=== PATIENT | male | born 1945 | race Caucasian/White ===

== ENCOUNTER 2020-01-31 14:18 | Emergency (ER) | payer OTHER, MEDICARE ==
[~2020-01-31] VITALS: Ht 167.6 cm; Wt 88.0 kg
[~2020-01-31 14:18] MED LIST: AMLODIPINE PO; CHLORTHALID25 MG PO; CLONIDINE0.1 MG PO; CLONIDINE0.2 MG PO; DIABETA5 MG PO; GLUCOTROL XL5 MG PO; GLYB/METFO5 MG/500 M OR; GLYB/METFO5 MG/500 M PO; LASIX 10 MG10 MG/TA1 PO; LISINOP/HCTZ1 TA1 PO; LISINOP/HCTZ1 TAB PO; LOTREL1 CA3 PO; METFORMIN1000 MG PO; PRAVASTATIN SOD20 MG PO; PRAVASTATIN10 MG PO; TENORMIN25 MG PO
[2020-01-31 15:03] LABS: URINE BILIRUBIN - DIPSTICK NEGATIVE (NEGATIVE); URINE BLOOD DIPSTICK LARGE (NEGATIVE); URINE COLOR YELLOW; URINE GLUCOSE - DIPSTICK NEGATIVE (NEGATIVE); URINE KETONE NEGATIVE (NEGATIVE); URINE NITRITE - DIPSTICK NEGATIVE (Negative); URINE PH 8.5 (4.5-8.0); URINE PROTEIN - DIPSTICK 100 mg/dL (NEG-TRACE); URINE UROBILINOGEN - DIPSTICK 0.2 E.U./dL (0.2)
[2020-01-31 15:10] LABS: URINE LEUK ESTERASE MODERATE (NEGATIVE)
[2020-01-31 15:11] LABS: URINE TRIP PHOS CRYSTALS MANY lpf
[2020-01-31] MEDS ORDERED: KEFLEX500 M1 PO ×2 (15:32)
[2020-01-31 16:13] VITALS: BP 182/80
--- NOTE | 2020-02-02 11:15 | NUR ---
ATTEMPTED TO CONTACT PATIENT TO CHANGE KEFLEX RX TO CIPRO 500MG BID X 5 DAYS. NO ANSWER AT THIS TIME
== END 2020-01-31 16:19 | disposition home or self-care (01) | DRG 700 ==
LOC: ED 14:18
PROVIDERS: Student in an Organized Health Care Education/Training Program
DX: T83.511A Infection and inflammatory reaction due to indwelling urethral catheter, initial encounter (principal); N39.0 Urinary tract infection, site not specified; I12.9 Hypertensive chronic kidney disease with stage 1 through stage 4 chronic kidney disease, or unspecified chronic kidney disease; E11.22 Type 2 diabetes mellitus with diabetic chronic kidney disease; N18.9 Chronic kidney disease, unspecified; E11.42 Type 2 diabetes mellitus with diabetic polyneuropathy; B96.4 Proteus (mirabilis) (morganii) as the cause of diseases classified elsewhere; Y84.6 Urinary catheterization as the cause of abnormal reaction of the patient, or of later complication, without mention of misadventure at the time of the procedure; Z89.511 Acquired absence of right leg below knee; Z79.84 Long term (current) use of oral hypoglycemic drugs

== ENCOUNTER 2020-02-25 15:33 | Emergency (ER) | payer OTHER, MEDICARE ==
[~2020-02-25] VITALS: Ht 167.6 cm; Wt 104.5 kg
[~2020-02-25 15:33] MED LIST changes: +KEFLEX500 M1 PO
[2020-02-25] MEDS ORDERED: ASPIRIN81 MG PO (17:07)
[2020-02-25] MEDS ORDERED: ELIQUIS5 MG PO (17:09)
[2020-02-25] MEDS ORDERED: GABAPENTIN100 MG PO (17:11)
[2020-02-25 17:50] VITALS: BP 151/67
== END 2020-02-25 17:50 | disposition home or self-care (01) | DRG 700 ==
LOC: ED 15:33
PROC: 0T2BX0Z Change Drainage Device in Bladder, External Approach (ICD-10-PCS; principal; 2020-02-25)
DX: Z46.6 Encounter for fitting and adjustment of urinary device (principal); I12.9 Hypertensive chronic kidney disease with stage 1 through stage 4 chronic kidney disease, or unspecified chronic kidney disease; E11.22 Type 2 diabetes mellitus with diabetic chronic kidney disease; N18.9 Chronic kidney disease, unspecified; R33.9 Retention of urine, unspecified; E11.42 Type 2 diabetes mellitus with diabetic polyneuropathy; Z79.84 Long term (current) use of oral hypoglycemic drugs; Z89.511 Acquired absence of right leg below knee

== ENCOUNTER 2020-03-31 14:33 | Emergency (ER) | payer OTHER, MEDICARE ==
[~2020-03-31] VITALS: Ht 167.6 cm; Wt 100.0 kg
[~2020-03-31 14:33] MED LIST changes: +ASPIRIN81 MG PO; +ELIQUIS5 MG PO; +GABAPENTIN100 MG PO
[2020-03-31 15:05] LABS: URINE BILIRUBIN - DIPSTICK NEGATIVE (NEGATIVE); URINE BLOOD DIPSTICK LARGE (NEGATIVE); URINE COLOR YELLOW; URINE GLUCOSE - DIPSTICK 100 mg/dL (NEGATIVE); URINE KETONE NEGATIVE (NEGATIVE); URINE NITRITE - DIPSTICK NEGATIVE (Negative); URINE PROTEIN - DIPSTICK 30 mg/dL (NEG-TRACE); URINE UROBILINOGEN - DIPSTICK 0.2 E.U./dL (0.2)
[2020-03-31] MEDS ORDERED: AMIODARONE200 MG PO (15:11)
[2020-03-31] MEDS ORDERED: NORVASC PO (15:11)
[2020-03-31] MEDS ORDERED: LIPITOR40 M1 PO (15:12)
[2020-03-31] MEDS ORDERED: VITAMIN B 12100 MCG PO (15:13)
[2020-03-31] MEDS ORDERED: TERAZOSIN1 MG PO (15:13)
[2020-03-31] MEDS ORDERED: COREG3.125 MG PO (15:13)
[2020-03-31] MEDS ORDERED: DOCUSATE SOD100 MG PO (15:14)
[2020-03-31 15:15] LABS: URINE LEUK ESTERASE MODERATE (NEGATIVE)
[2020-03-31] MEDS ORDERED: VITAMIN D22000 UNIT PO (15:15)
[2020-03-31 15:16] LABS: URINE BACTERIA FEW hpf; URINE RBC >100 RBC/hpf (0-5); URINE SQUAMOUS EPITHELIAL CELL FEW EPI/hpf (0-FEW); URINE WBC 20-50 WBC/hpf (0-5)
[2020-03-31] MEDS ORDERED: FOLIC ACID1 MG PO (15:16)
[2020-03-31] MEDS ORDERED: ALBUTEROL1 IN (15:17)
[2020-03-31] MEDS ORDERED: LIDOCAINE PATCH 55 % TOP (15:18)
[2020-03-31] MEDS ORDERED: RENVELA800 MG PO (15:19)
[2020-03-31] MEDS ORDERED: KEFLEX500 M1 PO (15:22)
[2020-03-31 15:46] VITALS: BP 150/97
== END 2020-03-31 15:40 | disposition home or self-care (01) | DRG 700 ==
LOC: ED 14:33
PROC: 0T2BX0Z Change Drainage Device in Bladder, External Approach (ICD-10-PCS; principal; 2020-03-31)
DX: T83.511A Infection and inflammatory reaction due to indwelling urethral catheter, initial encounter (principal); N39.0 Urinary tract infection, site not specified; I12.9 Hypertensive chronic kidney disease with stage 1 through stage 4 chronic kidney disease, or unspecified chronic kidney disease; E11.22 Type 2 diabetes mellitus with diabetic chronic kidney disease; N18.9 Chronic kidney disease, unspecified; E11.42 Type 2 diabetes mellitus with diabetic polyneuropathy; B96.20 Unspecified Escherichia coli [E. coli] as the cause of diseases classified elsewhere; Y84.6 Urinary catheterization as the cause of abnormal reaction of the patient, or of later complication, without mention of misadventure at the time of the procedure; Z79.84 Long term (current) use of oral hypoglycemic drugs; Z89.511 Acquired absence of right leg below knee

== ENCOUNTER 2020-05-12 13:22 | Emergency (ER) | payer OTHER, MEDICARE ==
[~2020-05-12] VITALS: Ht 167.6 cm; Wt 101.0 kg
[~2020-05-12 13:22] MED LIST changes: +ALBUTEROL1 IN; +AMIODARONE200 MG PO; +COREG3.125 MG PO; +DOCUSATE SOD100 MG PO; +FOLIC ACID1 MG PO; +LIDOCAINE PATCH 55 % TOP; +LIPITOR40 M1 PO; +NORVASC PO; +RENVELA800 MG PO; +TERAZOSIN1 MG PO; +VITAMIN B 12100 MCG PO; +VITAMIN D22000 UNIT PO
[2020-05-12 15:50] VITALS: BP 139/53
== END 2020-05-12 15:50 | disposition home or self-care (01) | DRG 699 ==
LOC: ED 13:22
PROC: 0T2BX0Z Change Drainage Device in Bladder, External Approach (ICD-10-PCS; principal; 2020-05-12)
DX: Z46.6 Encounter for fitting and adjustment of urinary device (principal); N39.0 Urinary tract infection, site not specified; I12.9 Hypertensive chronic kidney disease with stage 1 through stage 4 chronic kidney disease, or unspecified chronic kidney disease; E11.22 Type 2 diabetes mellitus with diabetic chronic kidney disease; N18.9 Chronic kidney disease, unspecified; E11.42 Type 2 diabetes mellitus with diabetic polyneuropathy; Z79.84 Long term (current) use of oral hypoglycemic drugs; Z89.511 Acquired absence of right leg below knee

== ENCOUNTER 2020-11-13 12:00 | Emergency (ER) | payer MEDICARE ==
[~2020-11-13] VITALS: Ht 167.6 cm; Wt 100.0 kg
[~2020-11-13 12:00] MED LIST changes: -ALBUTEROL1 IN; +COMBIVENT RESPIMAT IN; -GABAPENTIN100 MG PO; +NEURONTIN300 MG PO
[2020-11-13 12:25] VITALS: BP 113/56
[2020-11-13] MEDS ORDERED: OMNI-PAC300 MG PO (12:39)
== END 2020-11-13 14:10 | disposition home or self-care (01) ==
LOC: ED 12:00
DX: L03.116 Cellulitis of left lower limb (principal); S90.415A Abrasion, left lesser toe(s), initial encounter; E11.22 Type 2 diabetes mellitus with diabetic chronic kidney disease; I12.0 Hypertensive chronic kidney disease with stage 5 chronic kidney disease or end stage renal disease; N18.6 End stage renal disease; E11.42 Type 2 diabetes mellitus with diabetic polyneuropathy; X58.XXXA Exposure to other specified factors, initial encounter; Z99.2 Dependence on renal dialysis; Z79.84 Long term (current) use of oral hypoglycemic drugs; Z89.611 Acquired absence of right leg above knee

== ENCOUNTER 2021-01-16 08:42 | Inpatient (IN) | payer OTHER, MEDICARE ==
[~2021-01-16] VITALS: Ht 167.6 cm; Wt 96.9 kg
[~2021-01-16 08:42] MED LIST changes: +OMNI-PAC300 MG PO
--- NOTE | 2021-01-16 09:05 | NUR ---
PATIENT TO ROOM VIA EMS AND PHYSICIAN AT BEDSIDE FOR EVAL
[2021-01-16 09:52] LABS: HEMATOCRIT 30.4 % (39.0-50.0); HEMOGLOBIN 9.7 g/dl (14.0-18.0); IMMATURE GRANULOCYTES 0.6 % (0.0-5.0); MEAN CELL VOLUME 95.9 fL CALC (80.0-100.0); MEAN CORPUSCULAR HGB 30.6 pG CALC (26.0-32.0); MEAN CORPUSCULAR HGB CONC 31.9 g/dL CAL (32.0-36.0); NEUT# 15.68 thou/uL (1.82-7.42); RED BLOOD COUNT 3.17 mill/uL (4.70-6.10); RED CELL DISTRI WIDTH 12.4 % (11.5-15.5)
--- NOTE | 2021-01-16 10:02 | NUR ---
REPORT GIVEN TO BEN MUNOZ
[2021-01-16 10:04] LABS: ALBUMIN 3.7 g/dL (3.2-5.0); BILIRUBIN, TOTAL 0.3 mg/dL (0.0-1.4); CREATININE 4.6 mg/dL (0.7-1.3); MAGNESIUM 2.2 mg/dL (1.6-2.3); PROTHROMBIN TIME 10.7 SECONDS (9.0-12.5); TOTAL PROTEIN 6.6 g/dL (6.3-8.2)
[2021-01-16 10:07] LABS: POTASSIUM 2.5 mmol/l (3.5-5.1)
[2021-01-16 10:53] LABS: URINE BILIRUBIN - DIPSTICK NEGATIVE (NEGATIVE); URINE BLOOD DIPSTICK SMALL (NEGATIVE); URINE COLOR YELLOW; URINE GLUCOSE - DIPSTICK 250 mg/dL (NEGATIVE); URINE KETONE NEGATIVE (NEGATIVE); URINE LEUK ESTERASE MODERATE (NEGATIVE); URINE NITRITE - DIPSTICK NEGATIVE (Negative); URINE PH 8.5 (4.5-8.0); URINE PROTEIN - DIPSTICK 100 mg/dL (NEG-TRACE); URINE UROBILINOGEN - DIPSTICK 0.2 E.U./dL (0.2)
[2021-01-16 10:57] LABS: URINE AMORPH SEDIMENT MANY hpf (NONE-FER)
[2021-01-16 10:58] LABS: URINE TRIP PHOS CRYSTALS MODERATE lpf
[2021-01-16 10:59] LABS: URINE BACTERIA MANY hpf
--- NOTE | 2021-01-16 11:31 | NUR ---
IV ABT, FLUIDS, KCL AND MAG INFUSING ORDERED. VSS TEMP 98.5 RESP EVEN UNLABORED. SHAW CATH TO BSDB DRAINING YELLOW URINE. FISTULA TO LUE PATENT. + THRILL. PT A&OX3
--- NOTE | 2021-01-16 12:45 | NUR ---
LEFT HEEL FLOATED. BLACK ESCHAR TO LEFT LAT HEEL. PT REPORTS AREA HAS BEEN THERE FOR A WHILE.
--- NOTE | 2021-01-16 14:30 | NUR ---
ASSISTED W/REPOSITIONING. ROTATE SIDE TO SIDE.
--- NOTE | 2021-01-16 15:35 | NUR ---
REPORT PROVIDED TO DAV BLACK ON MEDSURG ADVISED OF ALL EVENTS, ATTACHEMENT, AND MEDS.
--- NOTE | 2021-01-16 15:45 | NUR ---
PT TO MEDSURG VIA STRETCHER IN STABLE CONDITION. VSS. O2 2L/M VIA NC. IV SITES HEALHTY. IV FLUIDS TO RAC SITE AT 100 ML/HR UROSTOMY SHAW CATH PATENT TO BSDB.
--- NOTE | 2021-01-16 16:00 | NUR ---
PATIENT ARRIVED TO UNIT AT THIS TIME. PATIENT IS ALERT AND ORIENTED AT THIS TIME. 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 PATIENT HAS LEFT FOREARM WITH OLD SCABBED SKIN TEAR AT THAT WAS DONE PREVIOUS TO ADMISSION. PATIENT PRESENTS WITH LEFT LOWER LEG CELLULITIS AND EDEMA. PATIENT HAS O2 ON AT 2 LITERS AND TELE MONITOR IN PLACE. PATIENT HAS LEFT UPPER ARM FISTULA THAT HAS NOT BEEN ACCESSED AT THIS TIME. PATIENT HAS 16 ENGLISH CATH PLACED IN URIOSTOMY THAT WAS PLACED IN ED. PATIENT IS ALERT AND ORIENTED X 3 DENEIS PAIN AT THIS TIME. ROOM ORIENTATION GIVEN SIDERAILS ARE UP CALL LIGHT WITHIN REACH.
[2021-01-16 17:17] VITALS: BP 143/62
[2021-01-16 19:00] VITALS: BP 139/61
--- NOTE | 2021-01-16 19:00 | NUR ---
PATIENT RESTING IN BED AT THIS TIME SALON CUSTOMER EXPERIENCE SPECIALIST DONE SEE INTERVENTIONS. PATIENT IS ON 2 LITER OF 02 AT THIS TIME. PATIENT JADE ANY PAIN. PATIENT HAS A RBK AMPUTATION AND STUMP HAS EDEMA AND RED AT THIS TIME. PATIENT HAS A DRESSING ON TOP OF STUMP DUE TO AN ABRAISION THAT WAS DONE PRIOR TO ADMISSION. PATIENT HAS DRESSING ON LEFT FOREARM DUE TO A SKIN TEAR THAT WAS DONE PRIOR TO ADMISSION. PATIENT LEFT LOWER EXTREMITY IS EDEMODOUS AND 4+ NOTED. SIDERAILS ARE UP CALL LIGHT WITHIN REACH. PATIENT ALERT AND ORIENTED AT THIS TIME.
--- NOTE | 2021-01-16 22:06 | NUR ---
PATIENT RESTING IN BED AT THIS TIME DENIES ANY PAIN OR NEEDS AT THIS TIME. PATIENT 02 ON AT 2 LITER AT THIS TIME. PATIENT LEFT LEG UP ON PILLOW X 1. SIDERAILS ARE UP X 2 CALL LIGHT IS WITHIN REACH. SHAW CATH PATENT IN URIOSTOMY AND DRAINING YELLOW URINE. TELE MONITOR ON AND BEING MONITORED BY ED. WILL CONTINUE TO MONITOR.
--- NOTE | 2021-01-16 23:42 | NUR ---
PT MEDICATED FOR TEMP 101.4 ORDERED; NO COMPLAINTS OR CONCERNS VOICED AT THIS TIME; CALL DILLON WITHIN REACH; WILL CONTINUE TO MONITOR.
[2021-01-17] VITALS (9 sets, daily range): BP systolic 117–155; BP diastolic 50–84
--- NOTE | 2021-01-17 01:35 | NUR ---
REPORT RECEIVED FROM ALEXANDER RAMIREZ. PT. SLEEPING AT THIS TIME. NO DISTRESS NOTED. CALL LIGHT WITHIN REACH.
--- NOTE | 2021-01-17 04:00 | NUR ---
PT. SLEEPING AT THIS TIME. APPEARS COMFORTABLE. TELE SR W/ 1 AVB @ 73 BPM PER ED. CALL LIGHT WITHIN REACH. WILL CONTINUE TO MONITOR.
[2021-01-17 06:54] LABS: HEMATOCRIT 29.3 % (39.0-50.0); HEMOGLOBIN 9.3 g/dl (14.0-18.0); MEAN CELL VOLUME 97.7 fL CALC (80.0-100.0); MEAN CORPUSCULAR HGB CONC 31.7 g/dL CAL (32.0-36.0); RED CELL DISTRI WIDTH 12.9 % (11.5-15.5)
--- NOTE | 2021-01-17 07:00 | NUR ---
RECIEVED REPORT FROM ALEXANDER NIX
[2021-01-17 07:09] LABS: CREATININE 4.4 mg/dL (0.7-1.3)
[2021-01-17 07:11] LABS: POTASSIUM 4.6 mmol/l (3.5-5.1)
--- NOTE | 2021-01-17 08:08 | NUR ---
PT ASSISTED TO BEDSIDE TO EAT BREAKFAST. PT IS A/O X3. ASSESSMENT AND VITALS COMPLETED. BP 155/59, HR 89, O2 93% ON 2L NC. RESPIRATIONS ARE EVEN AND UNLABORED WITH NO DISTRESS NOTED. EXPIRATORY WHEEZING NOTED. HEART RHYTHM NORMAL WITH TELE IN PLACE, 1 AVB PER ER MONITORING. #20G RIGHT THUMB INFUSION WITH IVF PER ORDER, SITE REMAINS HEALTHY AND PATENT. SUPER PUBLIC CATH REMAINS IN PLACE, TUBING PATENT. CLEAR YELLOW URINE NOTED. SKIN INTACT. 4+ EDEMA NOTED TO RLE, SKIN DRY. L BKA NOTED, STUMP REDDENED. BLE EVATED WITH PILLOW X2. PT DENIES OF ANY PAINS OR DISCOMFORTS AT THIS TIME. ALL SAFETY PRECAUTIONS ARE IN PLACE WITH CALL LIGHT IN REACH. WILL CONTINUE TO MONITOR.
--- NOTE | 2021-01-17 09:00 | NUR ---
#20G RIGHT THUMB PULLED OUT BY PT. NEW #20G RAC STARTED, SITE REMAINS HEALTHY AND PATENT.
--- NOTE | 2021-01-17 12:03 | NUR ---
DR SALINAS AND CLAIRE,ANVLADIMIR AT BEDSIDE
--- NOTE | 2021-01-17 13:50 | NUR ---
PT SLEEPING IN SEMI FOWLERS POSITION. PT AWAKENS TO SPEECH. RESPIRATIONS ARE EVEN AND UNLABORED. O2 TUBING NOT APPLIED CORRECTLY. 2L NC REAPPLIED. SCHEDULED MEDICATIONS ADMINISTERED. SUPRA PUBIC CATH REMAINS IN PLACE, TUBGIN PATENT. TELE MONITORING IN PLACE. PT DENIES OF ANY PAINS OR DISCOMFORTS AT THIS TIME. ALL SAFETY PRECAUTIONS ARE IN PLACE WITH CALL LIGHT IN REACH. WILL CONTINUE TO MONITOR.
--- NOTE | 2021-01-17 15:56 | NUR ---
PT SLEEPING IN SEMI FOWLERS POSITION. RESPIRATIONS ARE EVEN AND UNLABORED ON 2L NC. #20F RAC INFUSING WITH IVF PER ORDER, SITE REMAINS HEALTHY AND PATENT. SUPER PUBIC CATH REMAINS IN PLACE, TUBING PATENT. NO SIGNS OF ANY OF DISCOMFORTS AT THIS TIME. ALL SAFETY PRECAUTIONS ARE IN PLACE WITH CALL LIGHT IN REACH. WILL CONTINUE TO MONITOR.
--- NOTE | 2021-01-17 19:53 | NUR ---
PT NOTED SOB WITH AUDIABLE WHEEZING. PT REPOSITIONED IN BED AND HOB ELEVATED AT THIS TIME. SAT 88% ON 2L/M, SAT UP TO 91% WITH REPOSITIONING. PT STATES HE TAKES FUROSEMIDE 20MG BID AT HOME FOR CHF. NOTIFIED TWISTER TENDER PHYSICIAN DR. SALINAS ORDERS RECEIVED TO D/C IVF AND ONE TIME ORDER OF LASIX 40MG IV NOW. WILL MEDICATE WHEN MEDICATION PROFILED. IVF D/C AT THIS TIME.
--- NOTE | 2021-01-17 21:47 | NUR ---
PT NOTED RESTING IN BED IN HIGH FOWLERS POSITION. RESPIRATIONS EVEN AND UNLABORED. ON O2 2L/M VIA NC. SAT 93%. SUPRAPUBIC PATENT DRAINING TO GRAVITY. PT STATES HE FEELS BETTER. ORAL FLUIDS PROVIDED. PT MEDICATED ORDERED. WILL CONTINUE TO MONITOR.
--- NOTE | 2021-01-17 23:58 | NUR ---
PT NOTED RESTING IN BED IN HIGH FOWLERS POSITION. RESPIRATIONS EVEN AND UNLABORED. ON O2 2L/M VIA NC. SAT 94%. SUPRAPUBIC PATENT DRAINING TO GRAVITY, 1100ML OUTPUT EMPTIED AT THIS TIME. MEDICATED WITH PRN APAP FOR TEMP OF 102.2. CALL LIGHT WITHIN REACH. WILL CONTINUE TO MONITOR.
--- NOTE | 2021-01-18 03:21 | NUR ---
PT NOTED RESTING IN BED IN HIGH FOWLERS POSITION. RESPIRATIONS EVEN AND UNLABORED. ON O2 2L/M VIA NC. SUPRAPUBIC CATHETER PATENT DRAINING TO GRAVITY. APPLICATION ADMINISTRATOR IN PLACE. CALL LIGHT WITHIN REACH. WILL CONTINUE TO MONITOR.
[2021-01-18 04:00] VITALS: BP 126/64
[2021-01-18 05:46] LABS: CREATININE 4.4 mg/dL (0.7-1.3); MAGNESIUM 2.7 mg/dL (1.6-2.3); POTASSIUM 4.6 mmol/l (3.5-5.1)
[2021-01-18 05:51] LABS: HEMATOCRIT 28.3 % (39.0-50.0); HEMOGLOBIN 8.9 g/dl (14.0-18.0); MEAN CORPUSCULAR HGB 31.1 pG CALC (26.0-32.0); MEAN CORPUSCULAR HGB CONC 31.4 g/dL CAL (32.0-36.0); RED BLOOD COUNT 2.86 mill/uL (4.70-6.10); RED CELL DISTRI WIDTH 12.9 % (11.5-15.5)
--- NOTE | 2021-01-18 07:00 | NUR ---
RECIEVED REPORT FROM ZULEMA KNIGHT
--- NOTE | 2021-01-18 07:57 | NUR ---
PRELIMINARY BLOOD CULTURE RESULTS AND URINE CULTURE RESULTS CALLED TO MELISSA LIRA. NEW ORDERS FOR CEFEPIME AND VANCOMYCIN
[2021-01-18 08:06] VITALS: BP 130/68
--- NOTE | 2021-01-18 08:06 | NUR ---
PT SITTING UP ON SIDE OF BED. PT IS A/O X3. ASSESSMENT AND VITALS COMPLETED. RESPIRATIONS ARE EVEN AND UNLABORED 100% ON 2L NC. 93% ON ROOM AIR. RESPIRATIONS REMAIN UNLABORED. HEART RHYTHM NORMAL WITH TELE IN PLACE, SR WITH 1AVB. BOWEL SOUNDS ARE HYPOACTIVE. ABD FIRM AND DISTENDED. PT REFUSES ANYTHING TO ASSIST WITH BM. #20G RAC FLUSHED, SITE APPEARS HEALTHY AND PATENT. RIGHT BKA NOTED, STUMP IRRITATED. 3+ EDEMA NOTED TO LLE. PEDAL PULSE WEAK. SUPER PUBIC CATH REMAINS IN PLACE, TUBING PATENT. CLEAR YELLOW URINE NOTED. PT DENIES OF ANY PAINS OR DISCOMFORTS AT THIS TIME. ALL SAFETY PRECAUTIONS ARE IN PLACE WITH CALL LIGHT IN REACH. WILL CONTINUE TO MONITOR.
--- NOTE | 2021-01-18 08:30 | NUR ---
S: AMRIT MONTEIRO is a 75 M who presents with UTI, sepsis, and hypokalemia. 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 All medications in patient's chart were reviewed. O: VS: BP 130/68 mmHg, P 69 bpm, RR 20 breath/min, T 97.5 F W 103 kg, HT 66 in, Scr= 4.4 mg/dL, CrCl= 17 ml/min A: Blood culture is pending. Urine culture shows Pseudomonas aeruginosa >100,000 CFU/mL which is sensitive to cefepime. P: Patient is on cefepime 2g IV Q24H. Vancomycin ordered for pharmacy to dose. Start Vancomycin 1500mg IV Q48H. Vancomycin trough is drawn before the 2nd dose on 01/20/21 at 0730. Vancomycin goal trough is between 15-20 mcg/ml. Pharmacy will follow and or advise on antibiotics use as needed.
[2021-01-18 10:20] VITALS: BP 132/75
--- NOTE | 2021-01-18 10:24 | NUR ---
REASSESSMENT OF O2 RESULTING IN 85%. 2L NC REAPPLIED. O2 INCREASED TO 95% ON 2L NC. RESPIRATIONS REMAINS EVEN AND UNLABORED WITH NO DISTRESS NOTED. PT INSTRUCTED TO LEAVE O2. PT VERBLAIZED UNDERSTANDING.
--- NOTE | 2021-01-18 12:00 | NUR ---
PT RESTING IN SEMI FOWLERS POSITION. RESIRATIONS ARE EVEN AND UNLABORED ON 2L NC. #20G RAC REMAINS IN PLACE. TELE MONITORING IN PLACE. SUPER PUBIC CATH REMAINS IN PLACE, TUBING PATENT. PT DENIES OF ANY PAINS OR DISCOMFORTS AT THIS TIME. ALL SAFETY PRECAUTIONS ARE IN PLACE WITH CALL LIGHT INREACH. WILL CONTINUE TO MONITOR.
[2021-01-18 15:46] VITALS: BP 141/67
--- NOTE | 2021-01-18 16:02 | NUR ---
PT SLEEPING IN SEMI FOWLERS POSITION. RESPIRATIONS ARE EVEN AND UNLABORED ON 2L NC. #20G RAC REMAINS IN PLACE.SUPER PUBIC CATH REMAINS IN PLACE, TUBING PATENT. REPORTED TEMP OF 101.4, TYLENOL TO BE ADMINISTERED. NO SIGNS OF ANY PAINS OR DISCOMFORTS AT THIS TIME. ALL SAFETY PRECAUTIONS ARE IN PLACE. WILL CONTINUE TO MONITOR.
--- NOTE | 2021-01-18 16:51 | NUR ---
DRESSING TO LFA AND RIGHT STUMP CHANGED. DRESSING REMAINS CDI. PROSTETIC SLEEVE APPLIED PER PT REQUEST. TYLENOL ADMINISTERED. EXPIRATORY WHEEZING NOTED. RT CALLED FOR NEB TREATMENT. ALL SAFETY PRECAUTIONS ARE IN PLACE WITH CALL LIGHT IN REACH.
--- NOTE | 2021-01-18 18:31 | NUR ---
REASSESMENT OF TEMP REUSLTING IN 98.9
[2021-01-18 19:29] VITALS: BP 133/66
--- NOTE | 2021-01-18 20:09 | NUR ---
1954: Patient awake, alert mX3 sitting on BS commode. O2 2l NC, patient denies complaints. Hx of R AKA with rubber sock in place. lLeft foot with 3+ edema. Patient is a s assist to bed. Call light in reach.
--- NOTE | 2021-01-18 22:41 | NUR ---
PATIENT RESTING IN BED, EYES CLOSED, EASILY WAKENED, O2 2L PER NC, SUPRAPUBIC TUBE IN PLACE AND DRAINING YELLOW URINE. PATIENT DENIES COMPLAINTS OR NEEDS AT THIS TIME. CALL LIGHT WITHIN REACH.
[2021-01-19 00:40] VITALS: BP 125/69
--- NOTE | 2021-01-19 01:16 | NUR ---
Patient resting in bed. O2 2L per NC. Patient wakens easily. Rubber sock from R AKA removed per patient request. Skin care provided.
--- NOTE | 2021-01-19 04:23 | NUR ---
Left arm dialysis access + thrill felt.
[2021-01-19 05:05] VITALS: BP 119/74
--- NOTE | 2021-01-19 05:25 | NUR ---
REPORT REC FROM Sara CANO RN
[2021-01-19 06:05] LABS: CREATININE 4.5 mg/dL (0.7-1.3); POTASSIUM 4.1 mmol/l (3.5-5.1)
[2021-01-19 06:30] LABS: HEMATOCRIT 28.1 % (39.0-50.0); HEMOGLOBIN 8.8 g/dl (14.0-18.0); MEAN CELL VOLUME 98.6 fL CALC (80.0-100.0); MEAN CORPUSCULAR HGB 30.9 pG CALC (26.0-32.0); MEAN CORPUSCULAR HGB CONC 31.3 g/dL CAL (32.0-36.0); RED BLOOD COUNT 2.85 mill/uL (4.70-6.10)
[2021-01-19 06:31] VITALS: BP 151/69
--- NOTE | 2021-01-19 06:31 | NUR ---
PT SITTING IN BED. A&O X3. NO DISTRESS NOTED. PT DENIES ANY PAIN AT THIS TIME. SUPRAPUBIC CATHETER DRAINING VIA GRAVITY WITH CLEAR YELLOW URINE NOTED. LIMB ALERT BRACELET TO LT ARM, PT DENIES GETTING ANY DIALYSIS TREATMENTS AT THIS TIME, STATES HE HAD FISTULA PLACED "JUST IN CASE". ACCUCHECK THIS MORNING 145, NO COVERAGE NEEDED. NO OTHER NEEDS AT THIS TIME. CALL LIGHT WITHIN REACH.
[2021-01-19 10:45] VITALS: BP 142/58
--- NOTE | 2021-01-19 11:18 | NUR ---
DR TOWNSEND AT BEDSIDE DISCUSSING POC
--- NOTE | 2021-01-19 15:10 | NUR ---
DR TURPIN CONSULT IN PROGRESS. SUPRAPUBIC CATH CONTINUES PATENT DRAINING VIA GRAVITY. NO OTHER NEEDS AT THIS TIME. CALL LIGHT WITHIN REACH.
[2021-01-19 15:30] VITALS: BP 130/60
--- NOTE | 2021-01-19 16:49 | NUR ---
PT SLEEPING IN BED. NO DISTRESS NOTED. CALL LIGHT WITHIN REACH.
[2021-01-19 19:00] VITALS: BP 121/50
--- NOTE | 2021-01-19 20:00 | NUR ---
PHYSICAL ASSESMENT COMPLETE. PT CURRENTLY DENIES PAIN OR DISCOMFORT. SCHEDULED MEDICATIONS AND PRN MEDICATION ADMINISTERED, SEE E-MAR. PT DENIES ANY NEEDS AT THIS TIME. PLAN OF CARE REVIEWED, PT DENIES QUESTIONS, VERBALIZES UNDERSTANDING. ITEMS WITHIN REACH, BED LOCKED IN LOW POSITION W/ BEDRAILS UP X2. CALL DILLON WITHIN REACH, AGREES TO CALL PRN.
--- NOTE | 2021-01-20 | NUR ---
PT LAYING IN BED WITH EYES CLOSED, APPEARS TO BE SLEEPING, APPEARS COMFORTABLE AND IN NO DISTRESS. RESPIRATIONS REGULAR AND UNLABORED. ITEMS REMAIN WITHIN REACH, CALL DILLON REMAINS WITHIN REACH. BED REMAINS LOCKED AND IN LOW POSITION WITH BEDRAILS UP X2. WILL CONTINUE TO MONITOR.
[2021-01-20 00:49] VITALS: BP 126/62
[2021-01-20 04:00] VITALS: BP 141/65
--- NOTE | 2021-01-20 04:03 | NUR ---
PT RESTING IN BED, NO SIGNS OF DISTRESS NOTED, RESP EVEN AND UNLABORED. PT VOICES NO NEEDS OR COMPLAINTS AT THIS TIME. CALL LIGHT IN REACH, CONTINUE TO MONITOR.
[2021-01-20 08:16] VITALS: BP 149/73
--- NOTE | 2021-01-20 08:17 | NUR ---
PT SITTING IN BED. A&O X3. NO DISTRESS NOTED. O2 VIA NC @2L IN PLACE. CLEAR BREATH SOUNDS UPON AUSCULTATION. ACTIVE BOWEL SOUNDS X4 QUADRANTS. SUPRAPUBIC CATH IN PLACE, TUBING PATENT DRAINING VIA GRAVITY WITH YELLOW URINE NOTED IN COLLECTION BAG. LLE ELEVATED ON PILLOW, REDDENED WITH +2 EDEMA, SLIGHTLY WARM TO THE TOUCH. RT BKA, ELEVATED ON PILLOW. ASSESSMENT COMPLETED. DISCUSSED POC. CALL LIGHT WITHIN REACH.
--- NOTE | 2021-01-20 08:22 | NUR ---
Spring FERRARO NOTIFIED OF BP OF 149/73, RETACRIT RETIMED DUE TO BP OUTSIDE OF PARAMETERS.
--- NOTE | 2021-01-20 08:49 | NUR ---
FINAL BLOOD CX RESULTS REPORTED TO MELISSA. GROUP B STREP, ON CEFEPIME, NO NEW ORDERS.
[2021-01-20 09:02] LABS: HEMATOCRIT 30.2 % (39.0-50.0); HEMOGLOBIN 9.4 g/dl (14.0-18.0); MEAN CELL VOLUME 97.7 fL CALC (80.0-100.0); MEAN CORPUSCULAR HGB 30.4 pG CALC (26.0-32.0); MEAN CORPUSCULAR HGB CONC 31.1 g/dL CAL (32.0-36.0); RED BLOOD COUNT 3.09 mill/uL (4.70-6.10); RED CELL DISTRI WIDTH 12.8 % (11.5-15.5)
[2021-01-20 09:16] LABS: CREATININE 4.2 mg/dL (0.7-1.3); POTASSIUM 4.1 mmol/l (3.5-5.1)
--- NOTE | 2021-01-20 10:09 | NUR ---
DR RAMACHANDRAN AND Tj TAN APRN AT BEDSIDE DISCUSSING POC
--- NOTE | 2021-01-20 10:12 | NUR ---
RP UPON RE-EVALUATION PRIOR TO ADMINISTRATION OF RETACRIT; BP 138/72; HR 68. K RONAN TO BE NOTIFIED.
[2021-01-20 10:16] VITALS: BP 138/72
--- NOTE | 2021-01-20 10:17 | NUR ---
LAB AT BEDSIDE OBTAINING VENIPUNCTURE FOR REPEAT BLOOD CULTURES
--- NOTE | 2021-01-20 10:29 | NUR ---
EDUCATION PROVIDED REGARDING RETACRIT. PT VERBALIZED UNDERSTANDING. PT COVERED WITH 3 UNITS OF INSULIN PER SLIDING SCALE COVERAGE. NO NEEDS AT THIS TIME. CALL LIGHT WITHIN REACH.
--- NOTE | 2021-01-20 10:57 | NUR ---
PT EDUCATED REGARDING ANCEF IV. PT VERBALIZED UNDERSTANDING. IV HEALTHY AND PATENT. NO NEEDS AT THIS TIME. CALL LIGHT WITHIN REACH.
--- NOTE | 2021-01-20 12:31 | NUR ---
EDVIN TEAM MANAGER AT BEDSIDE TO COMPLETE ORDERED ECHO
[2021-01-20] MEDS ORDERED: LASIX 40 MG TAB40 MG PO (13:14)
[2021-01-20] MEDS ORDERED: GLIPIZIDE5 M2 PO (13:17)
[2021-01-20 14:57] VITALS: BP 132/77
[2021-01-20 19:00] VITALS: BP 144/80
[2021-01-21] VITALS: BP 136/67
[2021-01-21 04:00] VITALS: BP 137/62
[2021-01-21 06:26] LABS: HEMATOCRIT 30.3 % (39.0-50.0); HEMOGLOBIN 9.3 g/dl (14.0-18.0); MEAN CELL VOLUME 98.4 fL CALC (80.0-100.0); MEAN CORPUSCULAR HGB 30.2 pG CALC (26.0-32.0); MEAN CORPUSCULAR HGB CONC 30.7 g/dL CAL (32.0-36.0); RED BLOOD COUNT 3.08 mill/uL (4.70-6.10); RED CELL DISTRI WIDTH 12.8 % (11.5-15.5)
[2021-01-21 06:32] LABS: ALBUMIN 3.2 g/dL (3.2-5.0); CREATININE 4.1 mg/dL (0.7-1.3); POTASSIUM 4.3 mmol/l (3.5-5.1)
--- NOTE | 2021-01-21 07:00 | NUR ---
RECIEVED REPORT FROM ALEXANDER BOWEN
[2021-01-21 07:40] VITALS: BP 164/80
--- NOTE | 2021-01-21 07:40 | NUR ---
PT RESTING IN SEMI FOWLERS POSITION. PT IS A/O X3. ASSESSMENT AND VITALS COMPLETED. BP 164/80, HR 61, O2 98% ON 2L NC. 96% ON ROOM AIR. 2L NC AT BEDSIDE PRN. HEART RHYTHM NORMAL WITH TELE IN PLACE. BOWEL SOUNDS ARE ACTIVE. BKA NOTED. STUMP REDDENED AND IRRITAED. TRACE EDEMA NOTED TO LLE, DRY SKIN NOTED. #20G RAC FLUSHED, SITE APPEARS HEALTHY AND PATENT. SUPER PUBIC CATH REMAINS IN PLACE, TUBING PATENT. CLEAR YELLOW URINE NOTED. PT DENIES OF ANY PAINS OR DISCOMFORTS AT THIS TIME. ALL SAFETY PRECAUTIONS ARE IN PLACE WITH CALL LIGHT IN REACH. WILL CONTINUE TO MONITOR.
--- NOTE | 2021-01-21 10:03 | NUR ---
REASSESSMENT OF O2 RESULTING IN 94% ON ROOM AIR. RESPIRATIONS ARE EVEN AND UNLABORED WITH NO DISTRESS. 2L NC REMAINS AT BEDSIDE. INSTRUCTED PT TO REAPPLY IF NEEDED. PT VERBALIZED UNDERSTANDING
--- NOTE | 2021-01-21 10:20 | NUR ---
DR RAMACHANDRAN AND CLAIRE,ANRP AT BEDSIDE
--- NOTE | 2021-01-21 11:30 | NUR ---
PT TRANSPORTED TO RADIOLOGY FOR PICCLINE VIA WHEELCHAIR IN STABLE CONDITION.
[2021-01-21 12:02] VITALS: BP 137/66
--- NOTE | 2021-01-21 12:32 | NUR ---
PT ARRIVED BACK TO [facility] ROOM 279 IN STABLE CONDITION. DOUBLE LUMEN PICC IN RUST, SITE HEALTHY AND PATENT WITH GOOD BLOOD RETURN NOTED. ACCUCHEK RESULTING IN 247, COVERAGE ADMINISTERED. TELE MONITORING IN PLACE. PT DENIES OF ANY PAINS OR DISCOMFORTS AT THIS TIME. ALL SAFETY PRECAUTIONS ARE IN PLACE WITH CALL LIGHT IN REACH. WILL CONTINUE TO MONITOR.
[2021-01-21 15:02] VITALS: BP 147/66
--- NOTE | 2021-01-21 15:10 | NUR ---
DR TURPIN CONSULT COMPLETED VIA TELEHEALTH
--- NOTE | 2021-01-21 16:24 | NUR ---
PT RESTING IN SEMI FOWLERS POSITION. RESPIRATIONS ARE EVEN AND UNLABORED ON ROOM AIR.KERLINE PICCLINE REMAINS IN PLACE, HEPARIN ADMNISTERED AFTER SCHEDULED MEDICATIONS. SUPERPUBIC CATH REMAINS IN PLACE, CLEAR YELLOW URINE NOTED. TELE MONITORING IN PLACE. PT DENIES OF ANY PAINS OR DISCOMFORTS AT THIS TIME. ALL SAFETY PRECAUTIONS ARE IN PLACE WITH CALL LIGHT IN REACH. WILL CONTINUE TO MONITOR.
[2021-01-21 19:00] VITALS: BP 133/53
--- NOTE | 2021-01-21 19:00 | NUR ---
REPORT RECEIVED FROM Roby CAMPBELL LPN
--- NOTE | 2021-01-21 21:30 | NUR ---
PATIENT ALERT AND ORIETED X 3. CLEAR LUNG SOUNDS. NORMAL HEART SOUNDS. LAST REPORTED BOWEL MOVEMENT 01/20/21. ACTIVE BOWEL SOUNDS.SUPRAPUBIC SHAW DRAINING CLEAR YELLOW URINE TO GRAVITY. DOUBLE LUMEN SAINE LOCK, FLUSHED AND PATENT. PATIENT IS A BELOW THE KNEE AMPUTEE ON THE RIGHT SIDE, STUMP EXPOSED CURRENTLY AND SLIGHTLY REDDENED BUT NO BREAK IN SKIN NOTED. PLAN OF CARE REVIEWED, PATIENT ORIENTED TO CALL LIGHT, CALL LIGHT AND BEDSIDE TABLE WITHIN REACH.
[2021-01-22] VITALS: BP 141/62
[2021-01-22 04:00] VITALS: BP 175/75
--- NOTE | 2021-01-22 04:30 | NUR ---
BLOOD ACCESSED FROM PICC LINE, PT TOLERATED WELL.
[2021-01-22 05:20] VITALS: BP 145/69
[2021-01-22 06:36] LABS: ALBUMIN 3.2 g/dL (3.2-5.0); BILIRUBIN, TOTAL 0.3 mg/dL (0.0-1.4); POTASSIUM 4.6 mmol/l (3.5-5.1); TOTAL PROTEIN 5.9 g/dL (6.3-8.2)
[2021-01-22 06:37] LABS: HEMATOCRIT 30.8 % (39.0-50.0); HEMOGLOBIN 9.5 g/dl (14.0-18.0); IMMATURE GRANULOCYTES 5.4 % (0.0-5.0); MEAN CELL VOLUME 98.4 fL CALC (80.0-100.0); MEAN CORPUSCULAR HGB 30.4 pG CALC (26.0-32.0); MEAN CORPUSCULAR HGB CONC 30.8 g/dL CAL (32.0-36.0); NEUT# 8.71 thou/uL (1.82-7.42); RED BLOOD COUNT 3.13 mill/uL (4.70-6.10); RED CELL DISTRI WIDTH 12.9 % (11.5-15.5)
[2021-01-22 08:15] VITALS: BP 168/74
--- NOTE | 2021-01-22 08:30 | NUR ---
BEDSIDE REPORT RECEIVED PT LYING IN BED SITTING UP IN BED ASSESSSMENT PERFORMED. NO COMPLAINTS
[2021-01-22] MEDS ORDERED: ROCEPHIN1 G1 IV (10:56)
[2021-01-22 11:27] VITALS: BP 159/66
--- NOTE | 2021-01-22 12:00 | NUR ---
PT AWAKE WATCHING TV NO COMPLAINTS
[2021-01-22 15:00] VITALS: BP 144/66
--- NOTE | 2021-01-22 17:39 | NUR ---
Discharge instructions given. Patient verbalizes understanding of same. Discharged in fair condition via Wheelchair to Home with family. All belongings sent with pt. Patient sent home with script to schedule an echo after discharge as well as identification cards for his PICC line--[facility] to follow IV infusion at home.
== END 2021-01-22 17:40 | disposition home health service (06) | DRG 872 ==
LOC: ED 08:42 → ED-I 10:56 → ED 10:56 → ED-I 10:57 → ED 11:15 → MS2 11:16 → ED-I 11:16 → MS2 14:39
PROVIDERS: Family Medicine; Nurse Practitioner; ADMIT Hospitalist; ATTEND Hospitalist
PROC: 0T2BX0Z Change Drainage Device in Bladder, External Approach (ICD-10-PCS; principal; 2021-01-16)
PROC: 02HV33Z Insertion of Infusion Device into Superior Vena Cava, Percutaneous Approach (ICD-10-PCS; 2021-01-21)
PROC: B518ZZA Fluoroscopy of Superior Vena Cava, Guidance (ICD-10-PCS; 2021-01-21)
DX: A40.1 Sepsis due to streptococcus, group B (principal); E87.2 Acidosis; N17.9 Acute kidney failure, unspecified; I12.0 Hypertensive chronic kidney disease with stage 5 chronic kidney disease or end stage renal disease; N18.5 Chronic kidney disease, stage 5; L03.116 Cellulitis of left lower limb; R65.20 Severe sepsis without septic shock; E87.6 Hypokalemia; R93.1 Abnormal findings on diagnostic imaging of heart and coronary circulation; E11.22 Type 2 diabetes mellitus with diabetic chronic kidney disease; E11.42 Type 2 diabetes mellitus with diabetic polyneuropathy; D63.1 Anemia in chronic kidney disease; N40.1 Benign prostatic hyperplasia with lower urinary tract symptoms; R33.8 Other retention of urine; I87.8 Other specified disorders of veins; I89.0 Lymphedema, not elsewhere classified; Z93.50 Unspecified cystostomy status; Z79.84 Long term (current) use of oral hypoglycemic drugs; Z22.39 Carrier of other specified bacterial diseases; Z89.511 Acquired absence of right leg below knee; Z20.822 Contact with and (suspected) exposure to COVID-19
CPT/HCPCS: G0378; J0692; J3370; J3475; Q3014; Q5106 EC

== ENCOUNTER 2021-05-12 11:21 | Emergency (ER) | payer MEDICARE ==
[~2021-05-12] VITALS: Ht 167.6 cm; Wt 115.0 kg
[~2021-05-12 11:21] MED LIST changes: +GLIPIZIDE5 M2 PO; +LASIX 40 MG TAB40 MG PO; +ROCEPHIN1 G1 IV
[2021-05-12 11:49] LABS: IMMATURE GRANULOCYTES 0.4 % (0.0-5.0); MEAN CELL VOLUME 89.5 fL CALC (80.0-100.0); MEAN CORPUSCULAR HGB 30.1 pG CALC (26.0-32.0); MEAN CORPUSCULAR HGB CONC 33.6 g/dL CAL (32.0-36.0); NEUT# 22.93 thou/uL (1.82-7.42); RED BLOOD COUNT 2.96 mill/uL (4.70-6.10); RED CELL DISTRI WIDTH 13.7 % (11.5-15.5)
[2021-05-12 11:50] LABS: HEMATOCRIT 26.5 % (39.0-50.0); HEMOGLOBIN 8.9 g/dl (14.0-18.0)
[2021-05-12 12:15] LABS: ALBUMIN 3.4 g/dL (3.2-5.0); POTASSIUM 3.9 mmol/l (3.5-5.1); TOTAL PROTEIN 6.3 g/dL (6.3-8.2)
[2021-05-12 12:18] LABS: BILIRUBIN, TOTAL 0.9 mg/dL (0.0-1.4); CREATININE 6.6 mg/dL (0.7-1.3)
[2021-05-12 19:00] VITALS: BP 157/72
== END 2021-05-12 19:20 ==
LOC: ED 11:21 → ED-I 15:20 → ED 19:20
PROVIDERS: Family Medicine
PROC: 05HM33Z Insertion of Infusion Device into Right Internal Jugular Vein, Percutaneous Approach (ICD-10-PCS; principal; 2021-05-12)
PROC: B513ZZA Fluoroscopy of Right Jugular Veins, Guidance (ICD-10-PCS; 2021-05-12)
DX: A41.9 Sepsis, unspecified organism (principal); R65.21 Severe sepsis with septic shock; E11.10 Type 2 diabetes mellitus with ketoacidosis without coma; L03.116 Cellulitis of left lower limb; L03.113 Cellulitis of right upper limb; E11.42 Type 2 diabetes mellitus with diabetic polyneuropathy; I12.9 Hypertensive chronic kidney disease with stage 1 through stage 4 chronic kidney disease, or unspecified chronic kidney disease; E11.22 Type 2 diabetes mellitus with diabetic chronic kidney disease; N18.9 Chronic kidney disease, unspecified; Z89.511 Acquired absence of right leg below knee; Z79.84 Long term (current) use of oral hypoglycemic drugs; Z20.822 Contact with and (suspected) exposure to COVID-19; M79.89 Other specified soft tissue disorders

== ENCOUNTER 2023-06-29 11:26 | Emergency (ER) | payer OTHER, MEDICARE ==
[2023-06-29] VITALS (11 sets, daily range): BP systolic 131–162; BP diastolic 61–76
[~2023-06-29] VITALS: Ht 167.6 cm; Wt 111.0 kg
[2023-06-29 13:01] LABS: URINE BILIRUBIN - DIPSTICK Negative (NEGATIVE); URINE BLOOD DIPSTICK Large (NEGATIVE); URINE GLUCOSE - DIPSTICK 100 mg/dL (NEGATIVE); URINE KETONE Negative (NEGATIVE); URINE NITRITE - DIPSTICK Negative (Negative); URINE PH 6.5 (4.5-8.0); URINE PROTEIN - DIPSTICK 100 mg/dL (NEG-TRACE); URINE UROBILINOGEN - DIPSTICK 0.2 E.U./dL (0.2)
[2023-06-29 13:02] LABS: URINE COLOR Yellow; URINE LEUK ESTERASE Large (NEGATIVE)
[2023-06-29 13:11] LABS: URINE BACTERIA MANY hpf; URINE WBC >100 WBC/hpf (0-5)
[2023-06-29 13:12] LABS: URINE HYALINE CAST FEW lpf (NONE-RARE)
== END 2023-06-29 14:51 | disposition home or self-care (01) | DRG 700 ==
LOC: ED 11:26
PROVIDERS: Nurse Practitioner
DX: T83.090A Other mechanical complication of cystostomy catheter, initial encounter (principal); I12.9 Hypertensive chronic kidney disease with stage 1 through stage 4 chronic kidney disease, or unspecified chronic kidney disease; E11.22 Type 2 diabetes mellitus with diabetic chronic kidney disease; N18.9 Chronic kidney disease, unspecified; E11.42 Type 2 diabetes mellitus with diabetic polyneuropathy; Y83.3 Surgical operation with formation of external stoma as the cause of abnormal reaction of the patient, or of later complication, without mention of misadventure at the time of the procedure; Z89.511 Acquired absence of right leg below knee; Z79.84 Long term (current) use of oral hypoglycemic drugs